=== PATIENT | female | born 1995 | race Caucasian/White ===

== ENCOUNTER → 2018-09-26 10:54 | Outpatient (CLI) | payer OTHER, SELFPAY ==
[2018-09-26 12:05] LABS: Basophils % 0.7 % (0.1-2.0); Eosinophils % 0.7 % (0.1-12.0); Hematocrit 40.9 % (37.0-47.0); Hemoglobin 13.8 g/dL (12.2-16.2); Lymphocytes # 1.8 K/mm3 (0.7-4.5); Lymphocytes % 35.9 % (10-50); Mean Corpuscular HGB Conc 33.7 g/dL (31.8-35.4); Mean Corpuscular Hemoglobin 32.1 pg (27.0-31.2); Mean Corpuscular Volume 95.3 fl (81-99); Monocytes # 0.3 K/mm3 (0.1-1.0); Monocytes % 5.8 % (1.7-9.3); Neutrophils # 2.9 K/mm3 (1.8-7.8); Neutrophils % 56.8 % (37.0-80.0); Platelet Count 277 K/mm3 (142-424); Red Blood Count 4.29 M/mm3 (4.20-5.40); Red Cell Distribution Width 12.3 % (11.5-17.5); White Blood Count 5.1 K/mm3 (4.8-10.8)
[2018-09-26 15:35] LABS: Alanine Aminotransferase 26 U/L (12-78); Albumin Level 4.1 gm/dL (3.4-5.0); Albumin/Globulin Ratio 1.5 (1.1-1.8); Alkaline Phosphatase 72 U/L (46-116); Anion Gap 14.4 mEq/L (5-15); Aspartate Amino Transferase 16 U/L (15-37); Bilirubin,Total 0.4 mg/dL (0.2-1.0); Blood Urea Nitrogen 16 mg/dL (7-18); Calcium 9.2 mg/dL (8.5-10.1); Carbon Dioxide 28 mmol/L (21.0-32.0); Chloride 102 mmol/L (98-107); Creatinine,Serum 0.87 mg/dL (0.55-1.02); Estimated Glomerular Filt Rate 79 ml/min (>60); Free Thyroxine Index 2.6 ug/dL (5.93-13.13); GFR (African American) 96 ML/MIN (>60); Globulin 2.8 gm/dl (1.3-3.2); Glucose 85 mg/dL (74-106); Potassium 4.4 mmoL/L (3.5-5.1); Sodium 140 mmol/L (136-145); T4 (Thyroxine) 8.2 ug/dl (4.7-13.3); Thyroid Stimulating Hormone 0.94 uIU/ml (0.358-3.740); Total Protein,Serum 6.9 gm/dL (6.4-8.2); Triiodothryronine (T3) Uptake 32 % (31-39)
[2018-09-28 06:42] LABS: Triiodothyronine (T3) Free 3.2 pg/mL (2.0-4.4)
== END ==
PROVIDERS: Visit Provider Nurse Practitioner Obstetrics & Gynecology
DX: R10.2 Pelvic and perineal pain (principal); R30.1 Vesical tenesmus; R53.82 Chronic fatigue, unspecified
CPT/HCPCS: 36415; 80053; 82652; 84436; 84443; 84479; 84481; 85025

== ENCOUNTER → 2018-12-19 14:42 | Outpatient (CLI) | payer OTHER, SELFPAY ==
--- NOTE | 2018-12-19 14:48 | US_ITS ---
US transvaginal HISTORY: ITS.REASON: PELVIC PAIN ORDERING PHYSICIAN: Edyta Estrella APRN PATIENT AGE: 23 years Comparison: None FINDINGS: The uterus measures 7 x 4 x 4 cm and is retroverted. Combined endometrial thickness is 5 mm. The left ovary is 4 x 1.6 cm with a volume of 8 mL and contains a few follicles measuring up to 1 cm. The right ovary is 3 x 2.8 cm with a volume of 10 mL. Multiple follicles are present on the right measuring up to 1.4 cm. There is a small amount fluid in the cul-de-sac. IMPRESSION: Small bilateral ovarian follicles. Retroverted uterus. Small amount of fluid in the cul-de-sac
== END ==
PROVIDERS: Visit Provider Nurse Practitioner Women's Health
DX: R10.2 Pelvic and perineal pain (principal)
CPT/HCPCS: 76830